=== PATIENT | female | born 1985 | race Caucasian/White ===

== ENCOUNTER → 2016-07-13 | Day surgery (SDC) | payer OTHER ==
[~2016-07-13] MED LIST: APREPITANT 40 MG CAP ONE; BACITRACIN IM FOR SOLN 50,000 UNIT VIAL ONE; BUPIVACAINE HCL PF 0.75% 30 ML VIAL ONE; LACTATED RINGER'S 1000 ML INJ 1,000 ML ONE; LIDOCAINE 1.5%/EPINEPHrine 1:200,000 PF SOLN 30 ML AMP ONE; MIDAZOLAM HCL 5 MG/ML VIAL (1 ML) ONE; MORPHINE SULFATE 4 MG/ML INJ ONE; ONDANSETRON HCL 4 MG/2 ML VIAL IV PUSH ONE; PROPOFOL 500 MG/50 ML BTL IV ONE; SODIUM CHLORIDE 0.9% 20 ML VIAL ONE; ceFAZolin 2 GM PREMIX 50 ML ONE; ceFAZolin INJ 1,000 MG VIAL ONE
--- NOTE | 2016-07-14 14:29 | MP ---
cc: TIERA STILES DATE OF SURGERY: 07/13/2016. PREOPERATIVE DIAGNOSIS: Right knee anterior cruciate ligament tear. POSTOPERATIVE DIAGNOSES Right knee anterior cruciate ligament tear. OPERATIVE PROCEDURE PERFORMED: Right knee anterior cruciate ligament arthroscopic-assisted patellar tendon autograft reconstruction. SURGEON: Dr. Tiera Stiles. ROTOR BALANCER: TIFFANY Jones ANESTHESIA: General. ESTIMATED BLOOD LOSS: 50 cc. TOURNIQUET TIME: Zero minutes. COMPLICATIONS: None. IMPLANTS USED: Arthrex. JUSTIFICATION FOR THE PROCEDURE: The patient is a 30-year-old female who injured the right knee with a complete disruption of the anterior cruciate ligament. She has had pain and instability symptoms. She was evaluated by the undersigned at the [facility]. Clinical exam as well as MRI confirmed the above-named findings. The patient was counselled as to the risks, benefits, and alternatives to the above-named proposed surgical procedure and she did wish to proceed with surgery. A written consent obtained. The patient was identified by name and taken to operating room and placed supine. General anesthesia was administered as well 2 grams of IV Ancef. A well-padded tourniquet was placed on the right thigh. The right thigh was carefully placed in well-padded leg armendariz. The right lower extremity was prepped and draped using isopropyl alcohol, Hibiclens solution and DuraPrep solution. A time-out was performed. At this point, a large incision was made over the anterior aspect of the right knee. A 10 blade pre-measured knife was used to harvest a 10 mm patellar tendon autograft donor. The patellar bone plug measured approximately 18 mm and the tibial bone plug measured approximately 23 mm. A 0.62 K-wire was drilled in both bone plug portions to suture. Once the graft was adequately prepared, a medial and lateral parapatellar arthrotomy incision was performed. The patellofemoral joint revealed no chondromalacia. The medial and lateral compartments were free of meniscal pathology or chondromalacia. The intercondylar notch revealed complete disruption of the anterior cruciate ligament. A shaver was used to perform a debridement of the torn anterior cruciate ligament. An arthroscopic bur was used for a notchplasty. The posterior wall was well-visualized. An Arthrex tibial guide was centered within the footprint of the cabazon anterior cruciate ligament and set at 55 degrees. This was used to drill a guide pin. Subsequently the outer cortex was broken with a 10 mm reamer and a coring reamer was then drilled to create the tibial tunnel. The bone graft from the coring reamer was saved on the back table. A 7 mm over the top medial portal guide was placed in the footprint of the cabazon anterior cruciate ligament of the lateral femoral condyle. A guide pin was drilled exiting the lateral femoral condyle. A low profile cannulated reamer measuring 10 mm in diameter was drilled to a depth of approximately 25 mm. A FiberWire suture was used as a passing suture and shuttling suture. The bone plug of the patella portion of the autograft was then shuttled into the femoral tunnel. A guidewires was placed and an Arthrex 7 x 23 mm bioabsorbable interference screw was used for fixation on the femoral side. Range of motion showed no evidence of pistoning or impingement with the leg held in near full extension. A guidewire was placed along the anterior border of the tibial bone plug portion and an Arthrex 9 x 23 mm bioabsorbable interference screw was used for fixation on the tibial side. Intraoperative Nely examination was performed, which was negative. The bone plug portion of the patella and tibial donor sites were then filled with the autograft that we saved and the paratenon and patellar tendon were repaired primarily with #0 running Vicryl suture. The subcutaneous layer was closed with 3-0 Vicryl and the skin was closed with Dermabond. Sterile dressings were applied. The patient tolerated the procedure well. No intraoperative complications were noted. NOTE Hamilton Mulligan, physician pharmacy assistant-certified, was present during the entire procedure to include patient positioning and the procedure itself. The medical necessity of a physician pharmacy assistant was indicated in this case due to the complexity of the procedure itself. He assisted with preparation, harvesting of the graft for reconstruction and he also assisted with manipulation of the camera, manipulation of the leg, drilling of tunnels, shuttling of sutures, passage of the graft and implantation of the internal fixation device for the purpose of reconstruction. MD MATI Castro/ALYSSA /10:32 AM /2:00 PM
== END | disposition home or self-care (01) ==
LOC: ESDC 07:07
PROVIDERS: ATTEND Orthopaedic Surgery Sports Medicine
DX: S83.511A Sprain of anterior cruciate ligament of right knee, initial encounter (principal)
CPT/HCPCS: 01400; 01991; 29888; 64447; C1713; J0690; J2250; J2270; J2405; J3010; J7120; J8501